=== PATIENT | male | born 1965 | race Caucasian/White ===

== ENCOUNTER 2017-10-04 06:52 | Day surgery (SDC) | payer OTHER, SELFPAY ==
[2017-10-01 13:13] VITALS: BMI 26.0
[2017-10-04] VITALS (10 sets, daily range): BP systolic 109–135; BP diastolic 39–79; PULSE 53–81; RESP 10–16; TEMP 36–37.1; O2SAT 94–96; BMI 26.0
--- NOTE | 2017-10-04 | PATH_ITS ---
[facility] Accession Number: [id number] . 01 Material submitted: . PART A: HEMORRHOID - LEFT LATERAL PART B: HEMORRHOID - RIGHT ANTERIOR NEAR MIDLINE PART C: HEMORRHOID - RIGHT LATERAL . 02 Diagnosis: A. Hemorrhoid, Left Lateral, Excision: Consistent with hemorrhoids. Negative for dysplasia or malignancy. . B. Hemorrhoid, Right Anterior Near Midline, Excision: Consistent with hemorrhoids. Negative for dysplasia or malignancy. . C. Hemorrhoid, Right Lateral, Excision: Consistent with hemorrhoids. Negative for dysplasia or malignancy. BFI/10/08/2017 . 02 Electronically signed: . Mansoor Marcial MD, PhD, Pathologist NPI- [id number] . 01 Gross description: . Received three formalin-filled containers, each labeled with the patient's name: . A. In a container labeled hemorrhoid left lateral #1, the specimen consists of a red-sosa to sosa-brown, rough, dome-shaped portion of tissue which measures 2.3 x 1.2 x 0.5 cm. The specimen is inked blue. Two apparel trimmings sales representative sections are submitted in cassette A. B. In a container labeled 2. Hemorrhoid right anterior near midline, the specimen consists of a sosa-ferreira to sosa-brown portion of tissue which measures 2.5 x 1.2 x 0.6 cm. The specimen is inked blue. Two apparel trimmings sales representative sections are submitted in cassette B. C. In a container labeled hemorrhoid right lateral, the specimen consists of a sosa-ferreira portion of tissue which measures 1.0 x 0.7 x 0.4 cm. The specimen is inked blue, trisected, and totally submitted in cassette C. ([id number]) /FRR . 02 Pathologist provided ICD-10: K64.0 . 02 CPT . 693540, 882536, [id number] Performed at: 01 [facility] [address] [place] [address], [place], [place] [id number] MD Kaz Zuniga MD Phone: [phone] Performed at: 02 [facility] [address] [place], [place] [id number] MD Reed Larson MD Phone: [phone]
[2017-10-04] MEDS: GABAPENTIN 600 MG TABLET PO (07:40)
--- NOTE | 2017-10-04 07:40 | PM.HP.1 ---
History of Present Illness Date Patient Seen: 10/04/17 Time Patient Seen: 07:41 Chief complaint: hemorrhoidectomy [id number] Narrative: Patient is a gentleman with significant hemorrhoidal disease. He actually had to be admitted and transfused for rectal bleeding and this was controlled with banding. However, his hemorrhoids are quite extensive and further banding does not seem to be reasonable option especially given the external components of his hemorrhoids. He is brought in for a formal hemorrhoidectomy. Patient History Medical History Nodule of left lung (Acute) Chronic pain (Chronic Unknown) Chronic pain of lower extremity (Chronic) Depression (Chronic Unknown) Hemorrhoids (Chronic Unknown) Hx of back injury (Chronic 03/2014) Neurogenic bladder (Chronic Unknown) PTSD (post-traumatic stress disorder) (Chronic Unknown) Anemia (Resolved Unknown) Surgical History History of colonoscopy (Inactive) Family & Social History Family History: Reviewed 10/04/17 by Eyad Dewey MD Social History: household members none Tobacco & Substance use: Smoking Status Never smoker Substance Use Type does not use Meds Home Medications Medication Instructions Recorded Confirmed Type docusate sodium [DOK] 250 mg PO BIDP PRN #0 02/07/17 10/04/17 History duloxetine [Cymbalta] 3 cap PO QDAY #0 02/07/17 History gabapentin [Neurontin] 3 tab PO Q8H #0 02/07/17 History lidocaine [Lidoderm] 1 patch TOPICAL Q12H PRN #0 02/07/17 History methocarbamol 2 tab PO Q8H #0 02/07/17 History topiramate [Topamax] 100 mg PO HS #0 02/07/17 History [VITAMIN B] PO QDAY #0 05/16/17 History hydrocodone-acetaminophen 1 tab PO Q6HP PRN #20 tab 05/19/17 Rx psyllium husk (aspartame) 1 pac PO QDAY #30 pac 05/19/17 Rx [Metamucil Fiber Singles] topiramate 100 mg PO BEDTIME 10/04/17 10/04/17 History Allergies Allergy/AdvReac Type Severity Reaction Status Date / Time No Known Drug Allergies Allergy Verified 10/01/17 13:18 Review of Systems Review of Systems All systems reviewed & are unremarkable except as noted in HPI and below Musculoskeletal Comments: Due to back fracture he has some decrease in his mobility and chronic pain in his lower extremities. Exam Vital Signs (past 8 hours): - 10/04/17 07:26 Temperature 98.7 F Pulse Rate 53 L Respiratory Rate 16 Blood Pressure 117/64 Pulse Oximetry 95 Oxygen Delivery Method Room Air Narrative Exam Narrative: Operative no apparent distress. His eyes are nonicteric. Lungs are clear to auscultation. No rales or rhonchi. Heart regular rate and rhythm without murmur gallop. Abdomen is scaphoid soft nontender without mass. Evidence of external hemorrhoids and known internal hemorrhoids. Alert and oriented x3. Speech rate and content are appropriate. Affect is appropriate. Assessment & Plan Plan: Assessment/Plan Narrative: Patient is a gentleman with large internal and external hemorrhoids who has chronic issues with his intestinal motility secondary to back injury. He has had marked improvement in his function 6 the injury but he is still recovering. I have discussed the operation with him. Risks of bleeding, infection which could be life threatening and recurrence of hemorrhoids in long-term were discussed. He may have considerable pain. This was also discussed. All questions were answered. Patient wishes to proceed. He has a known hernia but I would not repair that at this time.
[2017-10-04] MEDS: LACTATED RINGERS 1,000 ML 42 ML IV ×2 (07:41→11:40)
--- NOTE | 2017-10-04 07:47 | PM.PREOP ---
Pre-operative Note Interval Note Pre-op Check: Yes History & Physical exam performed today by Physician Changes: No
--- NOTE | 2017-10-04 08:32 | SUR.OPER ---
Prone on padded OR bed, head in foam head support, gel chest rolls, gel pad under knees, pillow under lower legs, toes free of pressure, arms secured on padded arm boards at <90 degrees abduction. Safety belt at thigh.
[2017-10-04] MEDS: LIDOCAINE 1% W/EPI INJ 20 ML INJ (08:41)
[2017-10-04] MEDS: DIBUCAINE 1% OINT 28 GM 1 APPLIC TOP (08:42)
[2017-10-04] MEDS: fentaNYL 100 MCG/2 ML INJ IV ×4 (09:50→10:18)
--- NOTE | 2017-10-04 09:50 | P.OP_ITS ---
Operative Date/Time/Diagnoses Date of procedure: 10/04/17 Time of procedure: 09:28 Pre-op diagnosis: Internal and external hemorrhoids with bleeding Post-op diagnosis: same (Columns located in the left lateral right anterior near midline and right lateral locations.) Procedure & Clinicians Procedure: Three column hemorrhoidectomy Same procedure as scheduled: Yes Indications: Bleeding hemorrhoids Surgeon: Eyad Dewey Click Yes if Unassisted: Yes Anesthesia Type: General Operative Notes Findings: Three columns of hemorrhoids as described above Closure Type: primary Specimen(s): other (Three columns of hemorrhoids) Implants & Drains: None Estimated Blood Loss (mL): 150 Blood products transfused: none Procedure in detail: The patient was placed richard-knife prone on the operating room table after discussion preoperatively that he would have no problem in that position. He was prepped and draped in usual fashion. Local anesthetic was infiltrated in the area with a visible external hemorrhoids were located. Digital exam was unremarkable. A bivalve anoscope was inserted and circumferential exam performed. There were 3 columns of hemorrhoids to be dealt with. One on each side and then 1 in the anterior right location. Beginning on the left lateral position, a suture was placed at the head of the column consisting of 2 0 chromic. the external hemorrhoid was lifted off the underlying sphincters and dissected proximally and the entire hemorrhoid excised back to near the suture. The defect created was then closed with a running 2 0 chromic suture locking it intermittently. It is sternal sutures were placed to bring all bleeding to a cessation. Attention was then turned to the other 2 hemorrhoids which were excised in identical fashion. They were closed in identical fashion. The anus was then prepped with Betadine local anesthetic was infiltrated at the hemorrhoidal excision sites. Meticulous hemostasis had been she. The Gel-Foam with Nupercainal was inserted in the anal verge. A dressing was applied and the patient was placed black on his bed , extubated and taken the recovery room good condition. Complications: none Condition: stable Disposition: PACU Plan for aftercare: Follow-up in the office on October 19.
--- NOTE | 2017-10-04 10:15 | SUR.PHASEI ---
Oral airway removed at 0940 when pt aroused. Upon arousing pt's body became stiff and shaking. Pt was able to converse but was difficult to distract from the full body shaking. He explained that this is his body's reaction to pain/stress and that he needed pain relief medication. I medicated the pt with fenanyl and his body relaxed about 5 minutes after the first dose.
[2017-10-04] MEDS: OXYCODONE/ACETAMINOPHEN 5/325 TABLET 1 TAB PO ×2 (10:25→10:34)
== END 2017-10-04 11:26 | disposition home or self-care (01) ==
PROVIDERS: Family Provider Family Medicine; PCP Family Medicine; Visit Provider Specialist
PROC: (CPT 46260; principal; 2017-10-04 07:45)
DX: K64.8 Other hemorrhoids (principal); K64.4 Residual hemorrhoidal skin tags; G89.29 Other chronic pain; M79.605 Pain in left leg; M79.604 Pain in right leg
CPT/HCPCS: 46260; J0330; J1100; J2250; J2405; J2704; J3010

== ENCOUNTER 2017-10-31 09:45 | Outpatient (RCR) | payer OTHER, SELFPAY ==
--- NOTE | 2017-07-13 07:47 | PT.OIE ---
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, sequela (07/11/17) History of falling (07/11/17) Provider Visit Care Team Role Provider Type Arthur Bowens MD Attending Provider Physician Family Provider Primary Care Provider Specialty: Family Practice Address: [address] [place] [address], [facility] Email: [email or web address] Physical Therapy Initial Evaluation PT-OP-A Visit Information Start: 07/12/17 06:42 Freq: Status: Active Protocol: Document 07/11/17 10:30 AMB (Rec: 07/12/17 07:21 AMB [email or web address]) Out-Patient Physical Therapy Visit Information Visit Information Visit Type Initial Evaluation Visit Note 12 visits authorized between and 09/09/17 Visit Start Time 10:30 Visit Stop Time 11:30 Total Visit Minutes 60 Visit Number 1 Evaluation Information Evaluation Date 07/11/17 PT-OP-B Current Condition Start: 07/12/17 06:42 Freq: Status: Active Protocol: Document 07/11/17 10:30 AMB (Rec: 07/13/17 07:05 AMB [email or web address]) Current Condition History of Current Condition Onset Date 03/23/2014 Current Complaints Difficulty walking, pain in bilateral legs s/p incomplete paraplegia History of Current Condition Pt was in a snowboarding accident in 2014. He fractured T12 and had 2 surgeries: T1-L2 PSIF and T11 -L1 anterior fusion. Prior Treatments and Tests He had physical therapy in 2014 which focused on land and aquatic based exercise. He has followed up by exercising in the pool and the gym 3x/ week. He also goes to a chiropractor and massage therapist which helps with the leg and back pain. Treatment Goals Patient/Caregiver Goals Figure out what he can do to improve his function Prior Functional Status Baseline Function- ADL's Modified Independent Baseline Function- Mobility Modified Independent Baseline Function- Gait Before his SCI the patient was an independent community ambulator Baseline Function- Work/School Patient is retired Current Functional Impairments (Reported) Functional Limitations- Mobility/Gait Pt ambulates with 1-2 SPCs for short distances, uses a manual w/c for longer distances. PT-OP-C Subjective Start: 07/12/17 06:42 Freq: Status: Active Protocol: Document 07/11/17 10:30 AMB (Rec: 07/12/17 07:18 AMB [email or web address]) OP-PT Subjective Patient Comments Patient Comments Pt states he goes to the gym and works out a the pool 3x/ week, he does daily stretches in the morning. He is hoping to focus on what he can improve to improve his function (he falls daily) and to improve his leg pain. Patient Questionnaires Lower Extremity Functional Scale LEFS Score 18 LEFS Impairment 60 to 79% Impaired (Score 17- 31) OP-PT Pain Assessment Pain Assessment Grid Paper Pain Assessment Grid Completed Yes Location Shoulder Pain Location Details Bilateral scapulae, anterior R shoulder Intensity 6 Scale Used Numeric (1 - 10) Knee Pain Location Details Bilateral Intensity 9 Scale Used Numeric (1 - 10) Variations/Patterns Anterior leg pain of 6/10 worst at anterior knees. PT-OP-E Functional Tests Start: 07/12/17 06:42 Freq: Status: Active Protocol: Document 07/11/17 10:30 AMB (Rec: 07/12/17 07:03 AMB [email or web address]) Functional Tests Timed Up and Go (TUG) Score 18 seconds Comments with 1 SPC, 39 seconds without AD PT-OP-G Mobility & Gait Start: 07/12/17 06:42 Freq: Status: Active Protocol: Document 07/11/17 10:30 AMB (Rec: 07/12/17 07:13 AMB [email or web address]) OP Mobility Evaluation Wheelchair Management Assessment Details Pt did not bring it in but it sounds like a rigid ultra light. He does get right shoulder pain both anteriorly and in the scapula with propulsion, especially with end range shoulder extension. OP Gait Assessment Gait Gait Assistance Required: Standby Assistance Distance (Feet) (feet) 40 Assistive Devices Assistive Device Straight Cane Factors Limiting Gait Function Factors Limiting Gait Function Abnormal Tonal Influences Decreased Sensation Decreased Strength Pain Poor Balance Comments Gait Comments Pt with very stiff gait, reduced trunk rotation, placing his feet takes concentration. Pt has 2 near falls during PT. States that he leg just give out. PT-OP-H Neuro Start: 07/12/17 06:42 Freq: Status: Active Protocol: Document 07/11/17 10:30 AMB (Rec: 07/12/17 07:02 AMB [email or web address]) Sensation Evaluation Location Details Lower Extremity Light Touch Impaired Proprioception (Position) Impaired Comments Summary Comments Pt reports recent sensation testing at [place]: had difficult with sharp vs dull due to increased pain in bilateral legs, worst at anterior knees. Pt hyper sensitive to light touch to the point he tries not to wear long pants (but he can wear socks and shoes). Muscle Tone Tone Assessment Lower Extremity Muscle Tone Comments Non- diminishing clonus bilaterally PT-OP-J Posture/Palpation/Skin Start: 07/12/17 06:42 Freq: Status: Active Protocol: Document 07/11/17 10:30 AMB (Rec: 07/12/17 07:06 AMB [email or web address]) Palpation Assessment Location Two Palpation Location R shoulder Palpation Findings Soft Tissue Tightness Tenderness Palpation Details Tenderness with palpation at biceps tendon on the right, not on the left. One Palpation Location Scar at thoracic and lumbar spine Palpation Findings Muscle Guarding Palpation Details Patient is concerned about a knot at his proximal scar on the right. It is quite firm and increases his pain with palpation. PT-OP-M Strength Start: 07/12/17 06:42 Freq: Status: Active Protocol: Document 07/11/17 10:30 AMB (Rec: 07/12/17 06:56 AMB [email or web address]) Trunk Strength Trunk Manual Muscle Testing Testing Position Supine Core Stabilization Can control double leg lowering without back arching until 30 degrees from neutral. Hip Strength Hip Manual Muscle Testing Right Flexion (L2) 4 Good Extension (S1) 4 Good Abduction 4- Good- Left Flexion (L2) 4+ Good+ Extension (S1) 4+ Good+ Abduction 4 Good Knee Strength Knee Manual Muscle Testing Left Flexion (S2) 4+ Good+ Extension (L3) 5 Normal Right Flexion (S2) 4+ Good+ Extension (L3) 5 Normal Ankle/Foot Strength Ankle and Foot Manual Muscle Testing Left Dorsiflexion (L4) 4 Good Plantarflexion (S1) 4- Good- Inversion 4 Good Eversion (S1) 3 Fair Right Dorsiflexion (L4) 4 Good Plantarflexion (S1) 4- Good- Inversion 4 Good Eversion (S1) 3 Fair Toe Strength Toe Manual Muscle Testing Right Great Toe Extension 4+ Good+ Left Great Toe Extension 4+ Good+ PT-OP-T Assessment and Plan Start: 07/12/17 06:42 Freq: Status: Active Protocol: Document 07/11/17 10:30 AMB (Rec: 07/13/17 07:42 AMB [email or web address]) Physical Therapy Assessment Rehab Potential Rehabilitation Potential Good Evaluation Complexity Number of Personal Factors/Comorbidities 1-2 Number of Body Systems Impaired 4 or More Clinical Presentation at Evaluation Evolving Impairments Impairments Activity Tolerance Balance Coordination Functional Activities Functional Mobility Gait Pain ROM Sensation Soft Tissue Mobility Strength Tone Other Concerns Fall Risk Pt reports 1x/day on average Goals 3 Impairment Balance Short Term Goal (STG) The patient will stand without UE support without LOB for 1 minute. STG Duration 4 weeks Correction Goal (LTG) The patient will reduce his falls from approximately 1x/ day to 1x/week. LTG Duration 8 weeks 2 Impairment Pain Short Term Goal (STG) The patient will roll over in bed without pain. STG Duration 4 weeks Correction Goal (LTG) The patient will tolerate wearing long pants with 5/10 pain or less. LTG Duration 8 weeks 1 Impairment Gait Short Term Goal (STG) The patient will improve his TUG score to 12 seconds with 1 SPC. STG Duration 4 weeks Correction Goal (LTG) The patient will ambulate in the community over uneven surfaces for 20 minutes without LOB or an increase in pain. LTG Duration 8 weeks Assessment Summary Assessment The patient attends PT with multiple pain complaints. The focus of physical therapy will be to help him manage his pain, and improve his function with transfers and gait. While his MMT in some muscle groups was strong, he has difficulty moving his legs throughout their ROM due to reduced proprioception and increased tone. Managing these impairments will be helpful in his overall pain management. Physical Therapy Plan Frequency and Duration Frequency of Treatment 2x/Week Duration of Treatment 2 months Plan of Care Start Date 07/11/17 Plan of Care End Date 09/05/17 Therapeutic Interventions Therapeutic Interventions Aquatic Therapy Balance Training Gait Training Home Exercise Program Manual Therapy Neuromuscular Re-education Self-Care/Home Management Therapeutic Activities Therapeutic Exercises Modalities Cold Pack/Ice Massage Electric Stimulation Hot Packs Provider Signature Date
--- NOTE | 2017-07-18 10:32 | PT.OTN ---
Current Diagnoses Pain in leg, unspecified (08/15/17) Physical Therapy Treatment Note PT-OP-A Visit Information Start: 07/12/17 06:42 Freq: Status: Active Protocol: Document 07/18/17 10:30 AMB (Rec: 07/18/17 10:44 AMB [id number]) Out-Patient Physical Therapy Visit Information Visit Information Visit Type Treatment Note Visit Note 12 visits authorized between and 09/09/17 Visit Start Time 10:30 Visit Stop Time 11:15 Total Visit Minutes 45 Visit Number 2 Evaluation Information Evaluation Date 07/11/17 PT-OP-B Current Condition Start: 07/12/17 06:42 Freq: Status: Active Protocol: Document 07/11/17 10:30 AMB (Rec: 07/13/17 07:05 AMB [email or web address]) Current Condition History of Current Condition Onset Date 03/23/2014 Current Complaints Difficulty walking, pain in bilateral legs s/p incomplete paraplegia History of Current Condition Pt was in a snowboarding accident in 2014. He fractured T12 and had 2 surgeries: T1-L2 PSIF and T11 -L1 anterior fusion. Prior Treatments and Tests He had physical therapy in 2014 which focused on land and aquatic based exercise. He has followed up by exercising in the pool and the gym 3x/ week. He also goes to a chiropractor and massage therapist which helps with the leg and back pain. Treatment Goals Patient/Caregiver Goals Figure out what he can do to improve his function Prior Functional Status Baseline Function- ADL's Modified Independent Baseline Function- Mobility Modified Independent Baseline Function- Gait Before his SCI the patient was an independent community ambulator Baseline Function- Work/School Patient is retired Current Functional Impairments (Reported) Functional Limitations- Mobility/Gait Pt ambulates with 1-2 SPCs for short distances, uses a manual w/c for longer distances. PT-OP-C Subjective Start: 07/12/17 06:42 Freq: Status: Active Protocol: Document 07/18/17 10:30 AMB (Rec: 07/18/17 11:05 AMB [email or web address]) OP-PT Subjective Patient Comments Patient Comments Pt has been working on [address]. PT-OP-E Functional Tests Start: 07/12/17 06:42 Freq: Status: Active Protocol: Document 07/11/17 10:30 AMB (Rec: 07/12/17 07:03 AMB [email or web address]) Functional Tests Timed Up and Go (TUG) Score 18 seconds Comments with 1 SPC, 39 seconds without AD PT-OP-G Mobility & Gait Start: 07/12/17 06:42 Freq: Status: Active Protocol: Document 07/11/17 10:30 AMB (Rec: 07/12/17 07:13 AMB [email or web address]) OP Mobility Evaluation Wheelchair Management Assessment Details Pt did not bring it in but it sounds like a rigid ultra light. He does get right shoulder pain both anteriorly and in the scapula with propulsion, especially with end range shoulder extension. OP Gait Assessment Gait Gait Assistance Required: Standby Assistance Distance (Feet) (feet) 40 Assistive Devices Assistive Device Straight Cane Factors Limiting Gait Function Factors Limiting Gait Function Abnormal Tonal Influences Decreased Sensation Decreased Strength Pain Poor Balance Comments Gait Comments Pt with very stiff gait, reduced trunk rotation, placing his feet takes concentration. Pt has 2 near falls during PT. States that he leg just give out. PT-OP-H Neuro Start: 07/12/17 06:42 Freq: Status: Active Protocol: Document 07/11/17 10:30 AMB (Rec: 07/12/17 07:02 AMB [email or web address]) Sensation Evaluation Location Details Lower Extremity Light Touch Impaired Proprioception (Position) Impaired Comments Summary Comments Pt reports recent sensation testing at [place]: had difficult with sharp vs dull due to increased pain in bilateral legs, worst at anterior knees. Pt hyper sensitive to light touch to the point he tries not to wear long pants (but he can wear socks and shoes). Muscle Tone Tone Assessment Lower Extremity Muscle Tone Comments Non- diminishing clonus bilaterally PT-OP-J Posture/Palpation/Skin Start: 07/12/17 06:42 Freq: Status: Active Protocol: Document 07/11/17 10:30 AMB (Rec: 07/12/17 07:06 AMB [email or web address]) Palpation Assessment Location Two Palpation Location R shoulder Palpation Findings Soft Tissue Tightness Tenderness Palpation Details Tenderness with palpation at biceps tendon on the right, not on the left. One Palpation Location Scar at thoracic and lumbar spine Palpation Findings Muscle Guarding Palpation Details Patient is concerned about a knot at his proximal scar on the right. It is quite firm and increases his pain with palpation. PT-OP-M Strength Start: 07/12/17 06:42 Freq: Status: Active Protocol: Document 07/11/17 10:30 AMB (Rec: 07/12/17 06:56 AMB [email or web address]) Trunk Strength Trunk Manual Muscle Testing Testing Position Supine Core Stabilization Can control double leg lowering without back arching until 30 degrees from neutral. Hip Strength Hip Manual Muscle Testing Right Flexion (L2) 4 Good Extension (S1) 4 Good Abduction 4- Good- Left Flexion (L2) 4+ Good+ Extension (S1) 4+ Good+ Abduction 4 Good Knee Strength Knee Manual Muscle Testing Left Flexion (S2) 4+ Good+ Extension (L3) 5 Normal Right Flexion (S2) 4+ Good+ Extension (L3) 5 Normal Ankle/Foot Strength Ankle and Foot Manual Muscle Testing Left Dorsiflexion (L4) 4 Good Plantarflexion (S1) 4- Good- Inversion 4 Good Eversion (S1) 3 Fair Right Dorsiflexion (L4) 4 Good Plantarflexion (S1) 4- Good- Inversion 4 Good Eversion (S1) 3 Fair Toe Strength Toe Manual Muscle Testing Right Great Toe Extension 4+ Good+ Left Great Toe Extension 4+ Good+ PT-OP-Q Treatments Start: 07/12/17 06:42 Freq: Status: Active Protocol: Document 07/18/17 10:30 AMB (Rec: 07/18/17 13:44 AMB [email or web address]) Therapeutic Exercises Supine Exercises 3 Supine Exercise Name SLR Side right Reps/Minutes 2x5 2 Supine Exercise Name 90-90 knee extension Resistance AROM Reps/Minutes 2 x 5 1 Supine Exercise Name hooklying knee extension Side bilateral Resistance AROM Reps/Minutes 2 x 10 Comments better with reduced pain Sidelying Exercises 1 Sidelying Exercise Name hip abduction Side bilateral Reps/Minutes 2 x 5 Comments difficult due to impaired proprioception Sitting Exercises 2 Sitting Exercise Name theraband ankle eversion Side bilateral Resistance 2 Reps/Minutes 2 x 10 1 Sitting Exercise Name theraband hip ER Side bilateral Resistance 2 Reps/Minutes 2x 10 Standing Exercises 1 Standing Exercise Name heel raise Reps/Minutes x 10 ea Comments single and double PT-OP-T Assessment and Plan Start: 07/12/17 06:42 Freq: Status: Active Protocol: Document 07/18/17 10:30 AMB (Rec: 07/18/17 13:44 AMB [email or web address]) Physical Therapy Assessment Assessment Summary Assessment The patient's pain impacts his ability to smoothly move through his ROM. He has much more tolerance to greater repetitions when his pain levels are lower. Breathing through the pain and reminders regarding the role of the brain in pain are helpful. Pt requires extensive rest breaks, and 1 repetition takes a long time due to the pain. Physical Therapy Plan Next Visit Focus/Plan Next Visit Plan Follow up on pain tolerance Please Sign and Return: I have reviewed this Plan of Care and certify that the skilled therapy services above are required to meet the patient?s needs. Physician Signature Date Printed Name and Credentials Clinical Instructor Signature Printed Name and Credentials
--- NOTE | 2017-08-15 15:30 | PT.OTN ---
Current Diagnoses Pain in leg, unspecified (08/15/17) Physical Therapy Treatment Note PT-OP-A Visit Information Start: 07/12/17 06:42 Freq: Status: Active Protocol: Document 08/15/17 10:30 AMB (Rec: 08/15/17 11:16 AMB [id number]) Out-Patient Physical Therapy Visit Information Visit Information Visit Type Treatment Note Visit Note 12 visits authorized between and 09/09/17 Visit Start Time 10:30 Visit Stop Time 11:15 Total Visit Minutes 45 Visit Number 3 Evaluation Information Evaluation Date 07/11/17 PT-OP-B Current Condition Start: 07/12/17 06:42 Freq: Status: Active Protocol: Document 07/11/17 10:30 AMB (Rec: 07/13/17 07:05 AMB [email or web address]) Current Condition History of Current Condition Onset Date 03/23/2014 Current Complaints Difficulty walking, pain in bilateral legs s/p incomplete paraplegia History of Current Condition Pt was in a snowboarding accident in 2014. He fractured T12 and had 2 surgeries: T1-L2 PSIF and T11 -L1 anterior fusion. Prior Treatments and Tests He had physical therapy in 2014 which focused on land and aquatic based exercise. He has followed up by exercising in the pool and the gym 3x/ week. He also goes to a chiropractor and massage therapist which helps with the leg and back pain. Treatment Goals Patient/Caregiver Goals Figure out what he can do to improve his function Prior Functional Status Baseline Function- ADL's Modified Independent Baseline Function- Mobility Modified Independent Baseline Function- Gait Before his SCI the patient was an independent community ambulator Baseline Function- Work/School Patient is retired Current Functional Impairments (Reported) Functional Limitations- Mobility/Gait Pt ambulates with 1-2 SPCs for short distances, uses a manual w/c for longer distances. PT-OP-C Subjective Start: 07/12/17 06:42 Freq: Status: Active Protocol: Document 08/15/17 10:30 AMB (Rec: 08/15/17 11:16 AMB [id number]) OP-PT Subjective Patient Comments Patient Comments Pt has been working on hip abduction and his ankle exercises. PT-OP-E Functional Tests Start: 07/12/17 06:42 Freq: Status: Active Protocol: Document 07/11/17 10:30 AMB (Rec: 07/12/17 07:03 AMB [email or web address]) Functional Tests Timed Up and Go (TUG) Score 18 seconds Comments with 1 SPC, 39 seconds without AD PT-OP-G Mobility & Gait Start: 07/12/17 06:42 Freq: Status: Active Protocol: Document 07/11/17 10:30 AMB (Rec: 07/12/17 07:13 AMB [email or web address]) OP Mobility Evaluation Wheelchair Management Assessment Details Pt did not bring it in but it sounds like a rigid ultra light. He does get right shoulder pain both anteriorly and in the scapula with propulsion, especially with end range shoulder extension. OP Gait Assessment Gait Gait Assistance Required: Standby Assistance Distance (Feet) (feet) 40 Assistive Devices Assistive Device Straight Cane Factors Limiting Gait Function Factors Limiting Gait Function Abnormal Tonal Influences Decreased Sensation Decreased Strength Pain Poor Balance Comments Gait Comments Pt with very stiff gait, reduced trunk rotation, placing his feet takes concentration. Pt has 2 near falls during PT. States that he leg just give out. PT-OP-H Neuro Start: 07/12/17 06:42 Freq: Status: Active Protocol: Document 07/11/17 10:30 AMB (Rec: 07/12/17 07:02 AMB [email or web address]) Sensation Evaluation Location Details Lower Extremity Light Touch Impaired Proprioception (Position) Impaired Comments Summary Comments Pt reports recent sensation testing at [place]: had difficult with sharp vs dull due to increased pain in bilateral legs, worst at anterior knees. Pt hyper sensitive to light touch to the point he tries not to wear long pants (but he can wear socks and shoes). Muscle Tone Tone Assessment Lower Extremity Muscle Tone Comments Non- diminishing clonus bilaterally PT-OP-J Posture/Palpation/Skin Start: 07/12/17 06:42 Freq: Status: Active Protocol: Document 07/11/17 10:30 AMB (Rec: 07/12/17 07:06 AMB [email or web address]) Palpation Assessment Location Two Palpation Location R shoulder Palpation Findings Soft Tissue Tightness Tenderness Palpation Details Tenderness with palpation at biceps tendon on the right, not on the left. One Palpation Location Scar at thoracic and lumbar spine Palpation Findings Muscle Guarding Palpation Details Patient is concerned about a knot at his proximal scar on the right. It is quite firm and increases his pain with palpation. PT-OP-M Strength Start: 07/12/17 06:42 Freq: Status: Active Protocol: Document 07/11/17 10:30 AMB (Rec: 07/12/17 06:56 AMB [email or web address]) Trunk Strength Trunk Manual Muscle Testing Testing Position Supine Core Stabilization Can control double leg lowering without back arching until 30 degrees from neutral. Hip Strength Hip Manual Muscle Testing Right Flexion (L2) 4 Good Extension (S1) 4 Good Abduction 4- Good- Left Flexion (L2) 4+ Good+ Extension (S1) 4+ Good+ Abduction 4 Good Knee Strength Knee Manual Muscle Testing Left Flexion (S2) 4+ Good+ Extension (L3) 5 Normal Right Flexion (S2) 4+ Good+ Extension (L3) 5 Normal Ankle/Foot Strength Ankle and Foot Manual Muscle Testing Left Dorsiflexion (L4) 4 Good Plantarflexion (S1) 4- Good- Inversion 4 Good Eversion (S1) 3 Fair Right Dorsiflexion (L4) 4 Good Plantarflexion (S1) 4- Good- Inversion 4 Good Eversion (S1) 3 Fair Toe Strength Toe Manual Muscle Testing Right Great Toe Extension 4+ Good+ Left Great Toe Extension 4+ Good+ PT-OP-Q Treatments Start: 07/12/17 06:42 Freq: Status: Active Protocol: Document 08/15/17 10:30 AMB (Rec: 08/15/17 15:26 AMB [email or web address]) Gym Equipment Shuttle Recovery Unilateral Heel Raises Resistance 50# Reps/Time 2 min Bilateral Heel Raises Resistance 75# Reps/Time 3 min Therapeutic Exercises Sidelying Exercises 3 Sidelying Exercise Name side plank Reps/Minutes 10x4 Comments kneeling and forearm 2 Sidelying Exercise Name clamshell Comments 2 x 10 1 Sidelying Exercise Name hip abduction Side bilateral Reps/Minutes 2 x 10 Comments improved Standing Exercises 1 Standing Exercise Name heel raise Equipment Used on stair Reps/Minutes x 10 ea Comments single and double PT-OP-T Assessment and Plan Start: 07/12/17 06:42 Freq: Status: Active Protocol: Document 08/15/17 10:30 AMB (Rec: 08/15/17 15:30 AMB [email or web address]) Physical Therapy Assessment Assessment Summary Assessment Pt is noticing increased pain bilaterally at his posterior thighs. Continues to have more strength statically than when trying to move his legs through space without being able to see them. Physical Therapy Plan Next Visit Focus/Plan Next Note Type Treatment Note Next Visit Plan Progress Please Sign and Return: I have reviewed this Plan of Care and certify that the skilled therapy services above are required to meet the patient?s needs. Physician Signature Date Printed Name and Credentials Clinical Instructor Signature Printed Name and Credentials
--- NOTE | 2017-08-22 11:47 | PT.OTN ---
Current Diagnoses Pain in leg, unspecified (08/22/17) Physical Therapy Treatment Note PT-OP-A Visit Information Start: 07/12/17 06:42 Freq: Status: Active Protocol: Document 08/22/17 10:30 AMB (Rec: 08/22/17 11:46 AMB [email or web address]) Out-Patient Physical Therapy Visit Information Visit Information Visit Type Treatment Note Visit Note 12 visits authorized between and 09/09/17 Visit Start Time 10:30 Visit Stop Time 11:15 Total Visit Minutes 45 Visit Number 4 Evaluation Information Evaluation Date 07/11/17 PT-OP-B Current Condition Start: 07/12/17 06:42 Freq: Status: Active Protocol: Document 07/11/17 10:30 AMB (Rec: 07/13/17 07:05 AMB [email or web address]) Current Condition History of Current Condition Onset Date 03/23/2014 Current Complaints Difficulty walking, pain in bilateral legs s/p incomplete paraplegia History of Current Condition Pt was in a snowboarding accident in 2014. He fractured T12 and had 2 surgeries: T1-L2 PSIF and T11 -L1 anterior fusion. Prior Treatments and Tests He had physical therapy in 2014 which focused on land and aquatic based exercise. He has followed up by exercising in the pool and the gym 3x/ week. He also goes to a chiropractor and massage therapist which helps with the leg and back pain. Treatment Goals Patient/Caregiver Goals Figure out what he can do to improve his function Prior Functional Status Baseline Function- ADL's Modified Independent Baseline Function- Mobility Modified Independent Baseline Function- Gait Before his SCI the patient was an independent community ambulator Baseline Function- Work/School Patient is retired Current Functional Impairments (Reported) Functional Limitations- Mobility/Gait Pt ambulates with 1-2 SPCs for short distances, uses a manual w/c for longer distances. PT-OP-C Subjective Start: 07/12/17 06:42 Freq: Status: Active Protocol: Document 08/22/17 10:30 AMB (Rec: 08/22/17 11:46 AMB [email or web address]) OP-PT Subjective Patient Comments Patient Comments Pt saw pain specialists at [facility] on Sunday, and they said he may just have to get used to the pain per his report. PT-OP-E Functional Tests Start: 07/12/17 06:42 Freq: Status: Active Protocol: Document 07/11/17 10:30 AMB (Rec: 07/12/17 07:03 AMB [email or web address]) Functional Tests Timed Up and Go (TUG) Score 18 seconds Comments with 1 SPC, 39 seconds without AD PT-OP-G Mobility & Gait Start: 07/12/17 06:42 Freq: Status: Active Protocol: Document 07/11/17 10:30 AMB (Rec: 07/12/17 07:13 AMB [email or web address]) OP Mobility Evaluation Wheelchair Management Assessment Details Pt did not bring it in but it sounds like a rigid ultra light. He does get right shoulder pain both anteriorly and in the scapula with propulsion, especially with end range shoulder extension. OP Gait Assessment Gait Gait Assistance Required: Standby Assistance Distance (Feet) (feet) 40 Assistive Devices Assistive Device Straight Cane Factors Limiting Gait Function Factors Limiting Gait Function Abnormal Tonal Influences Decreased Sensation Decreased Strength Pain Poor Balance Comments Gait Comments Pt with very stiff gait, reduced trunk rotation, placing his feet takes concentration. Pt has 2 near falls during PT. States that he leg just give out. PT-OP-H Neuro Start: 07/12/17 06:42 Freq: Status: Active Protocol: Document 07/11/17 10:30 AMB (Rec: 07/12/17 07:02 AMB [email or web address]) Sensation Evaluation Location Details Lower Extremity Light Touch Impaired Proprioception (Position) Impaired Comments Summary Comments Pt reports recent sensation testing at [place]: had difficult with sharp vs dull due to increased pain in bilateral legs, worst at anterior knees. Pt hyper sensitive to light touch to the point he tries not to wear long pants (but he can wear socks and shoes). Muscle Tone Tone Assessment Lower Extremity Muscle Tone Comments Non- diminishing clonus bilaterally PT-OP-J Posture/Palpation/Skin Start: 07/12/17 06:42 Freq: Status: Active Protocol: Document 07/11/17 10:30 AMB (Rec: 07/12/17 07:06 AMB [email or web address]) Palpation Assessment Location Two Palpation Location R shoulder Palpation Findings Soft Tissue Tightness Tenderness Palpation Details Tenderness with palpation at biceps tendon on the right, not on the left. One Palpation Location Scar at thoracic and lumbar spine Palpation Findings Muscle Guarding Palpation Details Patient is concerned about a knot at his proximal scar on the right. It is quite firm and increases his pain with palpation. PT-OP-M Strength Start: 07/12/17 06:42 Freq: Status: Active Protocol: Document 07/11/17 10:30 AMB (Rec: 07/12/17 06:56 AMB [email or web address]) Trunk Strength Trunk Manual Muscle Testing Testing Position Supine Core Stabilization Can control double leg lowering without back arching until 30 degrees from neutral. Hip Strength Hip Manual Muscle Testing Right Flexion (L2) 4 Good Extension (S1) 4 Good Abduction 4- Good- Left Flexion (L2) 4+ Good+ Extension (S1) 4+ Good+ Abduction 4 Good Knee Strength Knee Manual Muscle Testing Left Flexion (S2) 4+ Good+ Extension (L3) 5 Normal Right Flexion (S2) 4+ Good+ Extension (L3) 5 Normal Ankle/Foot Strength Ankle and Foot Manual Muscle Testing Left Dorsiflexion (L4) 4 Good Plantarflexion (S1) 4- Good- Inversion 4 Good Eversion (S1) 3 Fair Right Dorsiflexion (L4) 4 Good Plantarflexion (S1) 4- Good- Inversion 4 Good Eversion (S1) 3 Fair Toe Strength Toe Manual Muscle Testing Right Great Toe Extension 4+ Good+ Left Great Toe Extension 4+ Good+ PT-OP-Q Treatments Start: 07/12/17 06:42 Freq: Status: Active Protocol: Document 08/22/17 10:30 AMB (Rec: 08/22/17 11:46 AMB [email or web address]) Gym Equipment Therapeutic Ball 1 Exercise Details LAQ, march, pelvic tilt Ball Size/Color 65cm Body Position Sitting Comments Difficult to maintain posture, TrA engaged Therapeutic Exercises Supine Exercises 2 Supine Exercise Name 90-90 knee extension Resistance AROM Reps/Minutes 2 x 5 Prone Exercises 3 Prone Exercise Name quadruped LE/ UE ext Reps/Minutes 5 2 Prone Exercise Name cat cow Reps/Minutes 10 1 Prone Exercise Name higinio pose Comments with SB PT-OP-T Assessment and Plan Start: 07/12/17 06:42 Freq: Status: Active Protocol: Document 08/22/17 10:30 AMB (Rec: 08/22/17 11:46 AMB [email or web address]) Physical Therapy Assessment Goals 3 Impairment Balance Short Term Goal (STG) The patient will stand without UE support without LOB for 1 minute. STG Duration 4 weeks Photographic Reproduction Technician Goal (LTG) The patient will reduce his falls from approximately 1x/ day to 1x/week. LTG Duration 8 weeks 2 Impairment Pain Short Term Goal (STG) The patient will roll over in bed without pain. STG Duration 4 weeks Photographic Reproduction Technician Goal (LTG) The patient will tolerate wearing long pants with 5/10 pain or less. LTG Duration 8 weeks 1 Impairment Gait Short Term Goal (STG) The patient will improve his TUG score to 12 seconds with 1 SPC. STG Duration 4 weeks Group Home Goal (LTG) The patient will ambulate in the community over uneven surfaces for 20 minutes without LOB or an increase in pain. LTG Duration 8 weeks Assessment Summary Assessment The patient continues to have spasms that are painful, especially in supine, tolerated ball exercises better. Physical Therapy Plan Frequency and Duration Frequency of Treatment 2x/Week Duration of Treatment 2 months Plan of Care Start Date 07/11/17 Plan of Care End Date 09/05/17 Next Visit Focus/Plan Next Note Type Treatment Note Next Visit Plan Progress core stability
--- NOTE | 2017-09-12 16:15 | PT.OTN ---
Current Diagnoses Pain in leg, unspecified (09/12/17) Physical Therapy Treatment Note PT-OP-A Visit Information Start: 07/12/17 06:42 Freq: Status: Active Protocol: Document 09/12/17 11:57 AMB (Rec: 09/12/17 11:59 AMB [email or web address]) Out-Patient Physical Therapy Visit Information Visit Information Visit Type Treatment Note Visit Note 12 visits authorized between and 11/10/17 Visit Start Time 11:15 Visit Stop Time 12:00 Total Visit Minutes 45 Visit Number 5 Evaluation Information Evaluation Date 07/11/17 PT-OP-B Current Condition Start: 07/12/17 06:42 Freq: Status: Active Protocol: Document 07/11/17 10:30 AMB (Rec: 07/13/17 07:05 AMB [email or web address]) Current Condition History of Current Condition Onset Date 03/23/2014 Current Complaints Difficulty walking, pain in bilateral legs s/p incomplete paraplegia History of Current Condition Pt was in a snowboarding accident in 2014. He fractured T12 and had 2 surgeries: T1-L2 PSIF and T11 -L1 anterior fusion. Prior Treatments and Tests He had physical therapy in 2014 which focused on land and aquatic based exercise. He has followed up by exercising in the pool and the gym 3x/ week. He also goes to a chiropractor and massage therapist which helps with the leg and back pain. Treatment Goals Patient/Caregiver Goals Figure out what he can do to improve his function Prior Functional Status Baseline Function- ADL's Modified Independent Baseline Function- Mobility Modified Independent Baseline Function- Gait Before his SCI the patient was an independent community ambulator Baseline Function- Work/School Patient is retired Current Functional Impairments (Reported) Functional Limitations- Mobility/Gait Pt ambulates with 1-2 SPCs for short distances, uses a manual w/c for longer distances. PT-OP-C Subjective Start: 07/12/17 06:42 Freq: Status: Active Protocol: Document 09/12/17 11:57 AMB (Rec: 09/12/17 11:59 AMB [email or web address]) OP-PT Subjective Patient Comments Patient Comments Pt has been having increased pain on Wednesdays due to going down to [place] and kayaking, driving is painful. PT-OP-E Functional Tests Start: 07/12/17 06:42 Freq: Status: Active Protocol: Document 07/11/17 10:30 AMB (Rec: 07/12/17 07:03 AMB [email or web address]) Functional Tests Timed Up and Go (TUG) Score 18 seconds Comments with 1 SPC, 39 seconds without AD PT-OP-G Mobility & Gait Start: 07/12/17 06:42 Freq: Status: Active Protocol: Document 07/11/17 10:30 AMB (Rec: 07/12/17 07:13 AMB [email or web address]) OP Mobility Evaluation Wheelchair Management Assessment Details Pt did not bring it in but it sounds like a rigid ultra light. He does get right shoulder pain both anteriorly and in the scapula with propulsion, especially with end range shoulder extension. OP Gait Assessment Gait Gait Assistance Required: Standby Assistance Distance (Feet) (feet) 40 Assistive Devices Assistive Device Straight Cane Factors Limiting Gait Function Factors Limiting Gait Function Abnormal Tonal Influences Decreased Sensation Decreased Strength Pain Poor Balance Comments Gait Comments Pt with very stiff gait, reduced trunk rotation, placing his feet takes concentration. Pt has 2 near falls during PT. States that he leg just give out. PT-OP-H Neuro Start: 07/12/17 06:42 Freq: Status: Active Protocol: Document 07/11/17 10:30 AMB (Rec: 07/12/17 07:02 AMB [email or web address]) Sensation Evaluation Location Details Lower Extremity Light Touch Impaired Proprioception (Position) Impaired Comments Summary Comments Pt reports recent sensation testing at [place]: had difficult with sharp vs dull due to increased pain in bilateral legs, worst at anterior knees. Pt hyper sensitive to light touch to the point he tries not to wear long pants (but he can wear socks and shoes). Muscle Tone Tone Assessment Lower Extremity Muscle Tone Comments Non- diminishing clonus bilaterally PT-OP-J Posture/Palpation/Skin Start: 07/12/17 06:42 Freq: Status: Active Protocol: Document 07/11/17 10:30 AMB (Rec: 07/12/17 07:06 AMB [email or web address]) Palpation Assessment Location Two Palpation Location R shoulder Palpation Findings Soft Tissue Tightness Tenderness Palpation Details Tenderness with palpation at biceps tendon on the right, not on the left. One Palpation Location Scar at thoracic and lumbar spine Palpation Findings Muscle Guarding Palpation Details Patient is concerned about a knot at his proximal scar on the right. It is quite firm and increases his pain with palpation. PT-OP-M Strength Start: 07/12/17 06:42 Freq: Status: Active Protocol: Document 07/11/17 10:30 AMB (Rec: 07/12/17 06:56 AMB [email or web address]) Trunk Strength Trunk Manual Muscle Testing Testing Position Supine Core Stabilization Can control double leg lowering without back arching until 30 degrees from neutral. Hip Strength Hip Manual Muscle Testing Right Flexion (L2) 4 Good Extension (S1) 4 Good Abduction 4- Good- Left Flexion (L2) 4+ Good+ Extension (S1) 4+ Good+ Abduction 4 Good Knee Strength Knee Manual Muscle Testing Left Flexion (S2) 4+ Good+ Extension (L3) 5 Normal Right Flexion (S2) 4+ Good+ Extension (L3) 5 Normal Ankle/Foot Strength Ankle and Foot Manual Muscle Testing Left Dorsiflexion (L4) 4 Good Plantarflexion (S1) 4- Good- Inversion 4 Good Eversion (S1) 3 Fair Right Dorsiflexion (L4) 4 Good Plantarflexion (S1) 4- Good- Inversion 4 Good Eversion (S1) 3 Fair Toe Strength Toe Manual Muscle Testing Right Great Toe Extension 4+ Good+ Left Great Toe Extension 4+ Good+ PT-OP-Q Treatments Start: 07/12/17 06:42 Freq: Status: Active Protocol: Document 09/12/17 11:15 AMB (Rec: 09/12/17 16:15 AMB [email or web address]) Manual Therapy Treatment Soft Tissue Mobilization 1 Comments Instruction in self pressure point with ball and sock around goat driver's seat Taping 1 Body Location Bilateral knees and calves Treatment Focus reduce muscle spasm Type of Tape Kinesio Tape Skin Inspection spider bite on calf- avoided taping over this area PT-OP-T Assessment and Plan Start: 07/12/17 06:42 Freq: Status: Active Protocol: Document 09/12/17 11:15 AMB (Rec: 09/12/17 16:15 AMB [email or web address]) Physical Therapy Assessment Assessment Summary Assessment Pt's pain continues to limit his function, especially with extended activity, pressure on his knees. Physical Therapy Plan Next Visit Focus/Plan Next Note Type Treatment Note Next Visit Plan Progress LE stability, self pain management techniques.
--- NOTE | 2017-09-19 11:52 | PT.OTN ---
Current Diagnoses Pain in leg, unspecified (09/19/17) Physical Therapy Treatment Note PT-OP-A Visit Information Start: 07/12/17 06:42 Freq: Status: Active Protocol: Document 09/19/17 10:30 AMB (Rec: 09/19/17 10:30 AMB [id number]) Out-Patient Physical Therapy Visit Information Visit Information Visit Type Progress Note Visit Start Time 10:30 Visit Stop Time 11:15 Total Visit Minutes 45 Visit Number 6 Evaluation Information Evaluation Date 07/11/17 PT-OP-B Current Condition Start: 07/12/17 06:42 Freq: Status: Active Protocol: Document 07/11/17 10:30 AMB (Rec: 07/13/17 07:05 AMB [email or web address]) Current Condition History of Current Condition Onset Date 03/23/2014 Current Complaints Difficulty walking, pain in bilateral legs s/p incomplete paraplegia History of Current Condition Pt was in a snowboarding accident in 2014. He fractured T12 and had 2 surgeries: T1-L2 PSIF and T11 -L1 anterior fusion. Prior Treatments and Tests He had physical therapy in 2014 which focused on land and aquatic based exercise. He has followed up by exercising in the pool and the gym 3x/ week. He also goes to a chiropractor and massage therapist which helps with the leg and back pain. Treatment Goals Patient/Caregiver Goals Figure out what he can do to improve his function Prior Functional Status Baseline Function- ADL's Modified Independent Baseline Function- Mobility Modified Independent Baseline Function- Gait Before his SCI the patient was an independent community ambulator Baseline Function- Work/School Patient is retired Current Functional Impairments (Reported) Functional Limitations- Mobility/Gait Pt ambulates with 1-2 SPCs for short distances, uses a manual w/c for longer distances. PT-OP-C Subjective Start: 07/12/17 06:42 Freq: Status: Active Protocol: Document 09/12/17 11:57 AMB (Rec: 09/12/17 11:59 AMB [email or web address]) OP-PT Subjective Patient Comments Patient Comments Pt has been having increased pain on Wednesdays due to going down to [place] and kayaking, driving is painful. PT-OP-E Functional Tests Start: 07/12/17 06:42 Freq: Status: Active Protocol: Document 09/19/17 10:30 AMB (Rec: 09/19/17 11:22 AMB [id number]) Functional Tests Timed Up and Go (TUG) Score 26 seconds Comments with 1 SPC, 24 with forearm crutches PT-OP-G Mobility & Gait Start: 07/12/17 06:42 Freq: Status: Active Protocol: Document 07/11/17 10:30 AMB (Rec: 07/12/17 07:13 AMB [email or web address]) OP Mobility Evaluation Wheelchair Management Assessment Details Pt did not bring it in but it sounds like a rigid ultra light. He does get right shoulder pain both anteriorly and in the scapula with propulsion, especially with end range shoulder extension. OP Gait Assessment Gait Gait Assistance Required: Standby Assistance Distance (Feet) (feet) 40 Assistive Devices Assistive Device Straight Cane Factors Limiting Gait Function Factors Limiting Gait Function Abnormal Tonal Influences Decreased Sensation Decreased Strength Pain Poor Balance Comments Gait Comments Pt with very stiff gait, reduced trunk rotation, placing his feet takes concentration. Pt has 2 near falls during PT. States that he leg just give out. PT-OP-H Neuro Start: 07/12/17 06:42 Freq: Status: Active Protocol: Document 07/11/17 10:30 AMB (Rec: 07/12/17 07:02 AMB [email or web address]) Sensation Evaluation Location Details Lower Extremity Light Touch Impaired Proprioception (Position) Impaired Comments Summary Comments Pt reports recent sensation testing at [place]: had difficult with sharp vs dull due to increased pain in bilateral legs, worst at anterior knees. Pt hyper sensitive to light touch to the point he tries not to wear long pants (but he can wear socks and shoes). Muscle Tone Tone Assessment Lower Extremity Muscle Tone Comments Non- diminishing clonus bilaterally PT-OP-J Posture/Palpation/Skin Start: 07/12/17 06:42 Freq: Status: Active Protocol: Document 07/11/17 10:30 AMB (Rec: 07/12/17 07:06 AMB [email or web address]) Palpation Assessment Location Two Palpation Location R shoulder Palpation Findings Soft Tissue Tightness Tenderness Palpation Details Tenderness with palpation at biceps tendon on the right, not on the left. One Palpation Location Scar at thoracic and lumbar spine Palpation Findings Muscle Guarding Palpation Details Patient is concerned about a knot at his proximal scar on the right. It is quite firm and increases his pain with palpation. PT-OP-M Strength Start: 07/12/17 06:42 Freq: Status: Active Protocol: Document 07/11/17 10:30 AMB (Rec: 07/12/17 06:56 AMB [email or web address]) Trunk Strength Trunk Manual Muscle Testing Testing Position Supine Core Stabilization Can control double leg lowering without back arching until 30 degrees from neutral. Hip Strength Hip Manual Muscle Testing Right Flexion (L2) 4 Good Extension (S1) 4 Good Abduction 4- Good- Left Flexion (L2) 4+ Good+ Extension (S1) 4+ Good+ Abduction 4 Good Knee Strength Knee Manual Muscle Testing Left Flexion (S2) 4+ Good+ Extension (L3) 5 Normal Right Flexion (S2) 4+ Good+ Extension (L3) 5 Normal Ankle/Foot Strength Ankle and Foot Manual Muscle Testing Left Dorsiflexion (L4) 4 Good Plantarflexion (S1) 4- Good- Inversion 4 Good Eversion (S1) 3 Fair Right Dorsiflexion (L4) 4 Good Plantarflexion (S1) 4- Good- Inversion 4 Good Eversion (S1) 3 Fair Toe Strength Toe Manual Muscle Testing Right Great Toe Extension 4+ Good+ Left Great Toe Extension 4+ Good+ PT-OP-Q Treatments Start: 07/12/17 06:42 Freq: Status: Active Protocol: Document 09/19/17 10:30 AMB (Rec: 09/19/17 11:27 AMB [id number]) Therapeutic Exercises Standing Exercises 2 Standing Exercise Name squats Comments wall squat, then partial squat with light UE support 1 Standing Exercise Name heel raise Equipment Used on stair Reps/Minutes x 10 ea Comments single and double Manual Therapy Treatment Soft Tissue Mobilization 1 Comments Instruction in self pressure point with ball and sock around farm truck driver's seat Neuro Re-Education Treatment Balance Activities 2 Details dynamic balance Comments [email or web address] 1 Details single leg stance Comments 5-8 seconds, takes concentration PT-OP-T Assessment and Plan Start: 07/12/17 06:42 Freq: Status: Active Protocol: Document 09/19/17 10:30 AMB (Rec: 09/19/17 11:07 AMB [id number]) Physical Therapy Assessment Goals 3 Impairment Balance Short Term Goal (STG) The patient will stand without UE support without LOB for 1 minute. MET STG Duration 4 weeks Option Trader Goal (LTG) The patient will reduce his falls from approximately 1x/ day to 1x/week. PROGRESS- 3-4 falls/week LTG Duration 8 weeks 2 Impairment Pain Short Term Goal (STG) The patient will roll over in bed without pain. NOT MET STG Duration 4 weeks Intermediate Goal (LTG) The patient will tolerate wearing long pants with 5/10 pain or less. NOT MET LTG Duration 8 weeks 1 Impairment Gait Short Term Goal (STG) The patient will improve his TUG score to 12 seconds with 1 SPC. NOT MET STG Duration 4 weeks Intermediate Goal (LTG) The patient will ambulate in the community over uneven surfaces for 20 minutes without LOB or an increase in pain. NOT MET LTG Duration 8 weeks Assessment Summary Assessment The patient's timed up and go was actually worse today than at initial evaluation. This is likely due to patient's fatigue from his trip to [place] yesterday. His pain continues to limit his function- very stiff with his gait today. Pt will benefit from continued PT to progress his gait/ LE/ core stability, to reduce his risk of falls. Pt continues to fall multiple times per week, although he states the frequency is decreasing. Physical Therapy Plan Frequency and Duration Frequency of Treatment 1x/Week Duration of Treatment 8 weeks Plan of Care Start Date 09/19/17 Plan of Care End Date 11/14/17 Therapeutic Interventions Therapeutic Interventions Aquatic Therapy Gait Training Home Exercise Program Manual Therapy Neuromuscular Re-education Self-Care/Home Management Therapeutic Activities Therapeutic Exercises Next Visit Focus/Plan Next Note Type Treatment Note Next Visit Plan Progress dynamic balance, gait
--- NOTE | 2017-09-19 11:55 | PT.OPPOC ---
Current Diagnoses Pain in leg, unspecified (09/19/17) Provider Visit Care Team Role Provider Type Arthur Bowens MD Attending Provider Physician Family Provider Primary Care Provider Specialty: Family Practice Address: [address] [place] [address], [id number] Email: [email or web address] Plan Of Care PT-OP-T Assessment and Plan Start: 07/12/17 06:42 Freq: Status: Active Protocol: Document 09/19/17 10:30 AMB (Rec: 09/19/17 11:07 AMB [id number]) Physical Therapy Assessment Goals 3 Impairment Balance Short Term Goal (STG) The patient will stand without UE support without LOB for 1 minute. MET STG Duration 4 weeks Universal Grinder Tool Goal (LTG) The patient will reduce his falls from approximately 1x/ day to 1x/week. PROGRESS- 3-4 falls/week LTG Duration 8 weeks 2 Impairment Pain Short Term Goal (STG) The patient will roll over in bed without pain. NOT MET STG Duration 4 weeks Snf Goal (LTG) The patient will tolerate wearing long pants with 5/10 pain or less. NOT MET LTG Duration 8 weeks 1 Impairment Gait Short Term Goal (STG) The patient will improve his TUG score to 12 seconds with 1 SPC. NOT MET STG Duration 4 weeks Universal Grinder Tool Goal (LTG) The patient will ambulate in the community over uneven surfaces for 20 minutes without LOB or an increase in pain. NOT MET LTG Duration 8 weeks Assessment Summary Assessment The patient's timed up and go was actually worse today than at initial evaluation. This is likely due to patient's fatigue from his trip to [place] yesterday. His pain continues to limit his function- very stiff with his gait today. Pt will benefit from continued PT to progress his gait/ LE/ core stability, to reduce his risk of falls. Pt continues to fall multiple times per week, although he states the frequency is decreasing. Physical Therapy Plan Frequency and Duration Frequency of Treatment 1x/Week Duration of Treatment 8 weeks Plan of Care Start Date 09/19/17 Plan of Care End Date 11/14/17 Therapeutic Interventions Therapeutic Interventions Aquatic Therapy Gait Training Home Exercise Program Manual Therapy Neuromuscular Re-education Self-Care/Home Management Therapeutic Activities Therapeutic Exercises Next Visit Focus/Plan Next Note Type Treatment Note Next Visit Plan Progress dynamic balance, gait Plan of Care Dates Plan of Care Start Date 09/19/17 Plan of Care End Date 11/14/17 Please Sign and Return: I have reviewed this Plan of Care and certify that the skilled therapy services above are required to meet the patient?s needs. Physician Signature Date Printed Name and Credentials Clinical Instructor Signature Printed Name and Credentials
--- NOTE | 2017-10-24 13:28 | PT.OTN ---
Current Diagnoses Pain in leg, unspecified (10/24/17) Physical Therapy Treatment Note PT-OP-A Visit Information Start: 07/12/17 06:42 Freq: Status: Active Protocol: Document 10/24/17 10:30 AMB (Rec: 10/24/17 10:34 AMB [id number]) Out-Patient Physical Therapy Visit Information Visit Information Visit Type Treatment Note Visit Start Time 10:30 Visit Stop Time 11:15 Total Visit Minutes 45 Visit Number 7 Evaluation Information Evaluation Date 07/11/17 PT-OP-B Current Condition Start: 07/12/17 06:42 Freq: Status: Active Protocol: Document 07/11/17 10:30 AMB (Rec: 07/13/17 07:05 AMB [id number]) Current Condition History of Current Condition Onset Date 03/23/2014 Current Complaints Difficulty walking, pain in bilateral legs s/p incomplete paraplegia History of Current Condition Pt was in a snowboarding accident in 2014. He fractured T12 and had 2 surgeries: T1-L2 PSIF and T11 -L1 anterior fusion. Prior Treatments and Tests He had physical therapy in 2014 which focused on land and aquatic based exercise. He has followed up by exercising in the pool and the gym 3x/ week. He also goes to a chiropractor and massage therapist which helps with the leg and back pain. Treatment Goals Patient/Caregiver Goals Figure out what he can do to improve his function Prior Functional Status Baseline Function- ADL's Modified Independent Baseline Function- Mobility Modified Independent Baseline Function- Gait Before his SCI the patient was an independent community ambulator Baseline Function- Work/School Patient is retired Current Functional Impairments (Reported) Functional Limitations- Mobility/Gait Pt ambulates with 1-2 SPCs for short distances, uses a manual w/c for longer distances. PT-OP-C Subjective Start: 07/12/17 06:42 Freq: Status: Active Protocol: Document 10/24/17 10:30 AMB (Rec: 10/24/17 11:15 AMB [id number]) OP-PT Subjective Patient Comments Patient Comments The patient reports he had surgery two weeks ago. Still recovering from hemerroidectomy. Has been taking it easy. Pain all over body has been increasing. PT-OP-E Functional Tests Start: 07/12/17 06:42 Freq: Status: Active Protocol: Document 09/19/17 10:30 AMB (Rec: 09/19/17 11:22 AMB [id number]) Functional Tests Timed Up and Go (TUG) Score 26 seconds Comments with 1 SPC, 24 with forearm crutches PT-OP-G Mobility & Gait Start: 07/12/17 06:42 Freq: Status: Active Protocol: Document 07/11/17 10:30 AMB (Rec: 07/12/17 07:13 AMB [email or web address]) OP Mobility Evaluation Wheelchair Management Assessment Details Pt did not bring it in but it sounds like a rigid ultra light. He does get right shoulder pain both anteriorly and in the scapula with propulsion, especially with end range shoulder extension. OP Gait Assessment Gait Gait Assistance Required: Standby Assistance Distance (Feet) (feet) 40 Assistive Devices Assistive Device Straight Cane Factors Limiting Gait Function Factors Limiting Gait Function Abnormal Tonal Influences Decreased Sensation Decreased Strength Pain Poor Balance Comments Gait Comments Pt with very stiff gait, reduced trunk rotation, placing his feet takes concentration. Pt has 2 near falls during PT. States that he leg just give out. PT-OP-H Neuro Start: 07/12/17 06:42 Freq: Status: Active Protocol: Document 07/11/17 10:30 AMB (Rec: 07/12/17 07:02 AMB [email or web address]) Sensation Evaluation Location Details Lower Extremity Light Touch Impaired Proprioception (Position) Impaired Comments Summary Comments Pt reports recent sensation testing at [facility]: had difficult with sharp vs dull due to increased pain in bilateral legs, worst at anterior knees. Pt hyper sensitive to light touch to the point he tries not to wear long pants (but he can wear socks and shoes). Muscle Tone Tone Assessment Lower Extremity Muscle Tone Comments Non- diminishing clonus bilaterally PT-OP-J Posture/Palpation/Skin Start: 07/12/17 06:42 Freq: Status: Active Protocol: Document 07/11/17 10:30 AMB (Rec: 07/12/17 07:06 AMB [email or web address]) Palpation Assessment Location Two Palpation Location R shoulder Palpation Findings Soft Tissue Tightness Tenderness Palpation Details Tenderness with palpation at biceps tendon on the right, not on the left. One Palpation Location Scar at thoracic and lumbar spine Palpation Findings Muscle Guarding Palpation Details Patient is concerned about a knot at his proximal scar on the right. It is quite firm and increases his pain with palpation. PT-OP-M Strength Start: 07/12/17 06:42 Freq: Status: Active Protocol: Document 07/11/17 10:30 AMB (Rec: 07/12/17 06:56 AMB [email or web address]) Trunk Strength Trunk Manual Muscle Testing Testing Position Supine Core Stabilization Can control double leg lowering without back arching until 30 degrees from neutral. Hip Strength Hip Manual Muscle Testing Right Flexion (L2) 4 Good Extension (S1) 4 Good Abduction 4- Good- Left Flexion (L2) 4+ Good+ Extension (S1) 4+ Good+ Abduction 4 Good Knee Strength Knee Manual Muscle Testing Left Flexion (S2) 4+ Good+ Extension (L3) 5 Normal Right Flexion (S2) 4+ Good+ Extension (L3) 5 Normal Ankle/Foot Strength Ankle and Foot Manual Muscle Testing Left Dorsiflexion (L4) 4 Good Plantarflexion (S1) 4- Good- Inversion 4 Good Eversion (S1) 3 Fair Right Dorsiflexion (L4) 4 Good Plantarflexion (S1) 4- Good- Inversion 4 Good Eversion (S1) 3 Fair Toe Strength Toe Manual Muscle Testing Right Great Toe Extension 4+ Good+ Left Great Toe Extension 4+ Good+ PT-OP-Q Treatments Start: 07/12/17 06:42 Freq: Status: Active Protocol: Document 10/24/17 10:30 AMB (Rec: 10/24/17 13:25 AMB [id number]) Therapeutic Exercises Supine Exercises 5 Supine Exercise Name SLR Reps/Minutes 10 4 Supine Exercise Name bridges Resistance 10 2 Supine Exercise Name 90-90 knee extension Resistance AROM Reps/Minutes 2 x 5 1 Supine Exercise Name heel slides Reps/Minutes 10 Standing Exercises 2 Standing Exercise Name squats Comments wall squat, then partial squat with light UE support Neuro Re-Education Treatment Balance Activities 3 Details modified tandem Comments eyes closed immediately causes LOB PT-OP-T Assessment and Plan Start: 07/12/17 06:42 Freq: Status: Active Protocol: Document 10/24/17 10:30 AMB (Rec: 10/24/17 13:25 AMB [id number]) Physical Therapy Assessment Assessment Summary Assessment Pt showed decreased balance and tolerance to exercise today, since has not been seen in over a month and had hemeroidectomy. Likely will have one more visit before [facility]. Physical Therapy Plan Next Visit Focus/Plan Next Note Type Treatment Note Next Visit Plan Progress dynamic balance, gait
--- NOTE | 2017-10-31 16:25 | PT.OTN ---
Current Diagnoses Pain in leg, unspecified (10/31/17) Physical Therapy Treatment Note PT-OP-A Visit Information Start: 07/12/17 06:42 Freq: Status: Active Protocol: Document 10/31/17 09:45 AMB (Rec: 10/31/17 10:17 AMB [id number]) Out-Patient Physical Therapy Visit Information Visit Information Visit Type Discharge Summary Visit Start Time 09:45 Visit Stop Time 10:30 Total Visit Minutes 45 Visit Number 8 Evaluation Information Evaluation Date 07/11/17 PT-OP-B Current Condition Start: 07/12/17 06:42 Freq: Status: Active Protocol: Document 07/11/17 10:30 AMB (Rec: 07/13/17 07:05 AMB [email or web address]) Current Condition History of Current Condition Onset Date 03/23/2014 Current Complaints Difficulty walking, pain in bilateral legs s/p incomplete paraplegia History of Current Condition Pt was in a snowboarding accident in 2014. He fractured T12 and had 2 surgeries: T1-L2 PSIF and T11 -L1 anterior fusion. Prior Treatments and Tests He had physical therapy in 2014 which focused on land and aquatic based exercise. He has followed up by exercising in the pool and the gym 3x/ week. He also goes to a chiropractor and massage therapist which helps with the leg and back pain. Treatment Goals Patient/Caregiver Goals Figure out what he can do to improve his function Prior Functional Status Baseline Function- ADL's Modified Independent Baseline Function- Mobility Modified Independent Baseline Function- Gait Before his SCI the patient was an independent community ambulator Baseline Function- Work/School Patient is retired Current Functional Impairments (Reported) Functional Limitations- Mobility/Gait Pt ambulates with 1-2 SPCs for short distances, uses a manual w/c for longer distances. PT-OP-C Subjective Start: 07/12/17 06:42 Freq: Status: Active Protocol: Document 10/31/17 09:45 AMB (Rec: 10/31/17 10:17 AMB [id number]) OP-PT Subjective Patient Comments Patient Comments The patient wants to review HEP. PT-OP-E Functional Tests Start: 07/12/17 06:42 Freq: Status: Active Protocol: Document 09/19/17 10:30 AMB (Rec: 09/19/17 11:22 AMB [id number]) Functional Tests Timed Up and Go (TUG) Score 26 seconds Comments with 1 SPC, 24 with forearm crutches PT-OP-G Mobility & Gait Start: 07/12/17 06:42 Freq: Status: Active Protocol: Document 07/11/17 10:30 AMB (Rec: 07/12/17 07:13 AMB [email or web address]) OP Mobility Evaluation Wheelchair Management Assessment Details Pt did not bring it in but it sounds like a rigid ultra light. He does get right shoulder pain both anteriorly and in the scapula with propulsion, especially with end range shoulder extension. OP Gait Assessment Gait Gait Assistance Required: Standby Assistance Distance (Feet) (feet) 40 Assistive Devices Assistive Device Straight Cane Factors Limiting Gait Function Factors Limiting Gait Function Abnormal Tonal Influences Decreased Sensation Decreased Strength Pain Poor Balance Comments Gait Comments Pt with very stiff gait, reduced trunk rotation, placing his feet takes concentration. Pt has 2 near falls during PT. States that he leg just give out. PT-OP-H Neuro Start: 07/12/17 06:42 Freq: Status: Active Protocol: Document 07/11/17 10:30 AMB (Rec: 07/12/17 07:02 AMB [email or web address]) Sensation Evaluation Location Details Lower Extremity Light Touch Impaired Proprioception (Position) Impaired Comments Summary Comments Pt reports recent sensation testing at [facility]: had difficult with sharp vs dull due to increased pain in bilateral legs, worst at anterior knees. Pt hyper sensitive to light touch to the point he tries not to wear long pants (but he can wear socks and shoes). Muscle Tone Tone Assessment Lower Extremity Muscle Tone Comments Non- diminishing clonus bilaterally PT-OP-J Posture/Palpation/Skin Start: 07/12/17 06:42 Freq: Status: Active Protocol: Document 07/11/17 10:30 AMB (Rec: 07/12/17 07:06 AMB [email or web address]) Palpation Assessment Location Two Palpation Location R shoulder Palpation Findings Soft Tissue Tightness Tenderness Palpation Details Tenderness with palpation at biceps tendon on the right, not on the left. One Palpation Location Scar at thoracic and lumbar spine Palpation Findings Muscle Guarding Palpation Details Patient is concerned about a knot at his proximal scar on the right. It is quite firm and increases his pain with palpation. PT-OP-M Strength Start: 07/12/17 06:42 Freq: Status: Active Protocol: Document 07/11/17 10:30 AMB (Rec: 07/12/17 06:56 AMB [email or web address]) Trunk Strength Trunk Manual Muscle Testing Testing Position Supine Core Stabilization Can control double leg lowering without back arching until 30 degrees from neutral. Hip Strength Hip Manual Muscle Testing Right Flexion (L2) 4 Good Extension (S1) 4 Good Abduction 4- Good- Left Flexion (L2) 4+ Good+ Extension (S1) 4+ Good+ Abduction 4 Good Knee Strength Knee Manual Muscle Testing Left Flexion (S2) 4+ Good+ Extension (L3) 5 Normal Right Flexion (S2) 4+ Good+ Extension (L3) 5 Normal Ankle/Foot Strength Ankle and Foot Manual Muscle Testing Left Dorsiflexion (L4) 4 Good Plantarflexion (S1) 4- Good- Inversion 4 Good Eversion (S1) 3 Fair Right Dorsiflexion (L4) 4 Good Plantarflexion (S1) 4- Good- Inversion 4 Good Eversion (S1) 3 Fair Toe Strength Toe Manual Muscle Testing Right Great Toe Extension 4+ Good+ Left Great Toe Extension 4+ Good+ PT-OP-Q Treatments Start: 07/12/17 06:42 Freq: Status: Active Protocol: Document 10/31/17 09:45 AMB (Rec: 10/31/17 16:23 AMB [email or web address]) Gym Equipment Therapeutic Ball 1 Exercise Details LAQ, march, pelvic tilt Ball Size/Color 65cm Body Position Sitting Comments Difficult to maintain posture, TrA engaged Therapeutic Exercises Supine Exercises 4 Supine Exercise Name bridges Resistance 10 Comments on ball Prone Exercises 3 Prone Exercise Name quadruped LE/ UE ext Reps/Minutes 5 2 Prone Exercise Name cat cow Reps/Minutes 10 1 Prone Exercise Name higinio pose Comments with SB PT-OP-T Assessment and Plan Start: 07/12/17 06:42 Freq: Status: Active Protocol: Document 10/31/17 09:45 AMB (Rec: 10/31/17 16:23 AMB [email or web address]) Physical Therapy Assessment Goals 3 Impairment Balance Short Term Goal (STG) The patient will stand without UE support without LOB for 1 minute. MET STG Duration 4 weeks Processor Inspector Goal (LTG) The patient will reduce his falls from approximately 1x/ day to 1x/week. MET LTG Duration 8 weeks 2 Impairment Pain Short Term Goal (STG) The patient will roll over in bed without pain. NOT MET STG Duration 4 weeks Retirement Goal (LTG) The patient will tolerate wearing long pants with 5/10 pain or less. NOT MET LTG Duration 8 weeks 1 Impairment Gait Short Term Goal (STG) The patient will improve his TUG score to 12 seconds with 1 SPC. NOT MET STG Duration 4 weeks Retirement Goal (LTG) The patient will ambulate in the community over uneven surfaces for 20 minutes without LOB or an increase in pain. NOT MET LTG Duration 8 weeks Assessment Summary Assessment Pt continues to have nerve pain in his legs that makes it difficult to walk. His back has lately been aggravated by kayaking classes.He is very motivated to improve, but his pain continues to limit him. Physical Therapy Plan Discharge Physical Therapy Discharge Reasons Plateau in Progress Discharge Comments Insurance authorization ends soon. Pt has met 2/6 goals.
== END 2018-01-29 11:04 ==
LOC: PHYS 09:45
PROVIDERS: Family Provider Family Medicine; PCP Family Medicine; Visit Provider Family Medicine
DX: M79.606 Pain in leg, unspecified (principal)
CPT/HCPCS: 97110; 97112; 97140; 97162; 97530

== ENCOUNTER → 2019-03-12 13:33 | Outpatient (CLI) | payer OTHER, SELFPAY ==
--- NOTE | 2019-03-12 | DI.MRI.S_ITS ---
PROCEDURE: MR THORACIC SPINE WO CON INDICATIONS: SPINAL CORD INJURY TECHNIQUE: Noncontrast sagittal T1 spine echo and T2 fast spin echo, sagittal STIR, axial T1 and T2 fast spin echo through the thoracic spine. COMPARISON: [facility], CR, L-SPINE 2-3 VIEWS, 03/02/2009, 10:04. [facility], , MR LUMBAR SPINE WO CON, 03/12/2019, 14:22. [facility], CR, CHEST 2 VIEW, 12/04/2015, 12:08. FINDINGS: Image quality: There is susceptibility artifact associated with the metallic hardware. Alignment and Curvature: Mild dextroconvex scoliotic curvature is seen. Accentuated thoracic kyphosis is seen. Bone Marrow: Marrow is of normal overall signal. Scattered foci are seen, which are hyperintense on T1-weighted and T2-weighted imaging, which are most consistent with benign vertebral body hemangiomas. No acute vertebral body compression fractures. Spinal Cord: Visualized spinal cord is normal in size and signal. Paraspinous Soft Tissues: Within the subcutaneous fat centered on the right at the T9 level, there is an ovoid lesion seen that measures up to 3 cm craniocaudally. This demonstrates increased STIR signal and decreased signal on T1-weighted imaging and T2-weighted imaging. Miscellaneous: Extensive lumbar spine fixation hardware is seen extending from T10-L2. There is a strut graft seen through the T12 level. At T6-T7, there is a focal mild right foraminal disc protrusion seen. There is associated moderate right-sided neural foraminal narrowing. At T7-T8, there is a mild disc protrusion seen. No significant neural foraminal narrowing can be seen. Moderate neural foraminal narrowing is seen at this level. At T8-T9, there is a mild central disc protrusion seen, as on series 8 image 11. Mild central canal narrowing is seen, with associated mild mass effect upon the ventral spinal cord. No significant neural foraminal narrowing is seen. IMPRESSION: No significant spinal cord abnormality can be seen. Unremarkable T10-L2 fixation hardware, with associated susceptibility artifact. Mid thoracic spine degenerative changes are seen. Apparent 3 cm right posterior sebaceous cyst. Dictated by: Thom Kelly M.D. on 03/12/2019 at 14:32 Approved by: Thom Kelly M.D. on 03/12/2019 at 14:39
--- NOTE | 2019-03-12 14:06 | DI.MRI.S_ITS ---
PROCEDURE: MR LUMBAR SPINE WO CON INDICATIONS: SPINAL CORD INJURY TECHNIQUE: Noncontrast sagittal T1 spin echo and T2 fast echo, sagittal STIR, axial T1 and T2 fast spin echo through the lumbar spine. In cases with scoliosis, additional coronal T2 fast spin echo may be performed. COMPARISON: [facility], CR, L-SPINE 2-3 VIEWS, 03/02/2009, 10:04. [facility], MR, MR THORACIC SPINE WO CON, 03/12/2019, 14:22. [facility], CT, ABDOMEN/PELVIS WITH CONTRAST, 05/16/2017, 11:54. FINDINGS: Image quality: There is susceptibility artifact associated with metallic hardware. Alignment and Curvature: Mild dextroconvex scoliotic curvature is seen. Bone Marrow: Marrow is of normal overall signal. No acute vertebral body compression fractures. Spinal Cord: Conus medullaris terminates at the L1 level. Visualized cord demonstrates normal size. There is a tiny cystic focus seen within the T12 level the cord, as on series 11 image 10 measuring 4 mm. Paraspinous Soft Tissues: No paravertebral masses. Thoracolumbar fixation hardware is seen through L2. There is a strut graft at the T12 level. There is associated susceptibility artifact. T12-L1: No significant abnormality is seen. L1-L2: Mild to moderate loss of disc height and disc signal are seen. Mild generalized disc bulge is seen. L2-L3: Mild to moderate loss of disc height and disc signal are seen. Moderate generalized disc bulge is seen. There is moderate left-sided and mild to moderate right-sided neural foraminal narrowing seen. [id number] central canal narrowing is seen. There is a focal annular fissure seen posteriorly. L3-L4: The disc height is well-preserved. Loss of disc signal is seen at this level. Mild to moderate disc bulge is seen. Iodw-le-ohtdkxxm bilateral neural foraminal narrowing can be seen. Moderate central canal narrowing is seen. L4-L5: The disc height is well-preserved. Loss of disc signal is seen at this level. Moderate generalized disc bulge is seen. Mild facet joint hypertrophy is seen. There is at least moderate bilateral neural foraminal narrowing seen, left worse than right. Mild central canal narrowing is seen. L5-S1: The disc height is well-preserved. Loss of disc signal is seen at this level. Mild generalized disc bulge is seen. There is at least moderate bilateral neural foraminal narrowing seen, right worse than left. No significant central canal narrowing is seen. IMPRESSION: Thoracolumbar postoperative hardware is seen. At the T12 level, there is a focal cystic lesion seen in the spinal cord. Please correlate with known patient history and prior imaging. Multiple levels of lumbar spine degenerative change are seen, which are overall most prominent at the L2-L3 level and At L2-L3, there is a focal annular fissure seen posteriorly. Dictated by: Thom Kelly M.D. on 03/12/2019 at 16:19 Approved by: Thom Kelly M.D. on 03/12/2019 at 16:26
== END ==
PROVIDERS: Family Provider Family Medicine; Visit Provider Physical Medicine & Rehabilitation
DX: T14.8XXA Other injury of unspecified body region, initial encounter (principal); G95.9 Disease of spinal cord, unspecified; M47.814 Spondylosis without myelopathy or radiculopathy, thoracic region; M47.816 Spondylosis without myelopathy or radiculopathy, lumbar region; M41.9 Scoliosis, unspecified; X58.XXXA Exposure to other specified factors, initial encounter
CPT/HCPCS: 72146; 72148

== ENCOUNTER → 2023-06-17 07:21 | Outpatient (CLI) | payer MEDICARE, OTHER, SELFPAY ==
--- NOTE | 2023-06-17 | DI.MRI.S_ITS ---
PROCEDURE: MR LUMBAR SPINE WO CON INDICATIONS: Spinal stenosis, lumbar region TECHNIQUE: Noncontrast sagittal T1 spin echo and T2 fast echo, sagittal STIR, and T2 fast spin echo through the lumbar spine. In cases with scoliosis, additional coronal T2 fast spin echo may be performed. COMPARISON: [facility], MR, MR LUMBAR SPINE WO CON, 03/12/2019, 14:22. FINDINGS: Image quality: Excellent. Partially lumbarized S1 with rudimentary disc at S1-2. Prior surgery: Corpectomy with T12 with interbody cage. Posterior fusion instrumentation extending from the thoracic spine to L2, with the superior aspect excluded from field of view. Alignment and Curvature: Mild levoscoliosis of the lumbar spine, centered at L2-3. Bone Marrow: Fibrovascular end plate change at L2-3. Spinal Cord: Conus medullaris terminates at the L1-2 level. Visualized cord demonstrates normal signal and size. Paraspinous Soft Tissues: No paravertebral masses. T12-L1: Normal appearance. L1-L2: Normal appearance. L2-L3: Mild disc bulge superimposed left foraminal disc protrusion. Mild bilateral facet arthropathy. Mild central canal stenosis. Mild left neural foraminal stenosis. No right neural foraminal stenosis. L3-L4: Disc bulge. Mild bilateral facet arthropathy. No central canal stenosis. No right neural from stenosis. No left neural foraminal stenosis. L4-L5: Disc bulge. Mild bilateral facet arthropathy. No central canal or neural foraminal stenosis. L5-S1: Disc bulge. Mild bilateral facet arthropathy. No central canal stenosis. No neural foraminal stenosis. Small T2 hyperintense lesion in the left posterior iliac wing, nonspecific. No abdominal aortic aneurysm. Visualized sacrum is intact. IMPRESSION: 1. Postprocedural changes at the thoracolumbar junction as described above. 2. Fibrovascular end plate change at L2-3, new from prior exam. 3. Multilevel degenerative disc disease of the lumbar spine, most pronounced at L2-3, where there is mild central canal stenosis and mild left neural from stenosis, grossly unchanged from prior exam. Dictated by: Emily Brunner M.D. on 06/18/2023 at 10:07 Approved by: Emily Brunner M.D. on 06/18/2023 at 10:17
== END ==
PROVIDERS: Family Provider Family Medicine; PCP Nurse Practitioner Family; Referring Provider Physical Medicine & Rehabilitation; Visit Provider Physical Medicine & Rehabilitation
DX: M48.062 Spinal stenosis, lumbar region with neurogenic claudication (principal); M51.36 Other intervertebral disc degeneration, lumbar region; M51.37 Other intervertebral disc degeneration, lumbosacral region; Z98.1 Arthrodesis status
CPT/HCPCS: 72148

== ENCOUNTER → 2024-08-04 09:27 | Outpatient (CLI) | payer MEDICARE, OTHER, SELFPAY ==
--- NOTE | 2024-08-04 09:33 | DI.RAD.S_ITS ---
PROCEDURE: XR LUMBAR SPINE MIN 4V INDICATIONS: BACK PAIN TECHNIQUE: 5 views of the lumbar spine were acquired, including bilateral oblique views. COMPARISON: None. FINDINGS: Postoperative changes with pedicle screws and posterior fixation rods spanning from T10-L2. T12 corpectomy with interbody strut. Moderate degenerative changes of the lumbar spine with disc space narrowing, osteophytes, facet osseous hypertrophic changes most notably at L3-4, L4-5 and L5-S1 with [id number]-[id number] bilateral neural foraminal narrowing at these levels. No radiographic evidence of acute fracture or subluxation. Moderate to severe degenerative changes bilateral hips with joint space narrowing, osteophytes, sclerotic changes right greater than left, Kellgren Ricky grade 3-4. IMPRESSION: Postoperative and degenerative changes as discussed above. If symptoms persist or worsen, or there is high clinical suspicion of thoracic or lumbar abnormality, MRI could be performed. Dictated by: Chau Wilson M.D. on 08/04/2024 at 10:36 Approved by: Chau Wilson M.D. on 08/04/2024 at 10:39
--- NOTE | 2024-08-04 09:33 | DI.RAD.S_ITS ---
PROCEDURE: XR THORACIC SPINE 3V INDICATIONS: RIB INJURY TECHNIQUE: 3 views of the thoracic spine were acquired. COMPARISON: None. FINDINGS: C7-T1 and T1-T2 are not well evaluated due to overlap from the shoulders. Multilevel degenerative changes are noted with disc space narrowing, osteophytes, costovertebral and facet hypertrophic changes. Postoperative changes are noted with pedicle screws and posterior fixation rods T10-L2, off the inferior margin of the images. Indistinct margins of T12 vertebral body with possible prior corpectomy with strut placement. CT or MRI would be more useful for further evaluation. Ribs are not well evaluated on this exam. CT chest could be considered IMPRESSION: Postoperative changes and degenerative changes of the thoracic and upper lumbar spine as discussed above. Dictated by: Chau Wilson M.D. on 08/04/2024 at 10:04 Approved by: Chau Wilson M.D. on 08/04/2024 at 10:25
== END ==
PROVIDERS: Family Provider Family Medicine; PCP Nurse Practitioner Family; Referring Provider Physical Medicine & Rehabilitation; Visit Provider Physical Medicine & Rehabilitation
DX: G82.20 Paraplegia, unspecified (principal); M54.9 Dorsalgia, unspecified; S29.9XXA Unspecified injury of thorax, initial encounter; M89.8X8 Other specified disorders of bone, other site; M48.04 Spinal stenosis, thoracic region; M25.78 Osteophyte, vertebrae; Z98.890 Other specified postprocedural states; M48.061 Spinal stenosis, lumbar region without neurogenic claudication
CPT/HCPCS: 72072; 72110

== ENCOUNTER 2024-12-09 08:04 | Outpatient (CLI) | payer MEDICARE, OTHER, SELFPAY ==
[2024-12-09] VITALS (8 sets, daily range): BP systolic 103–119; BP diastolic 57–78; PULSE 54–88; RESP 11–19; TEMP 36.1; O2SAT 95–99
[2024-12-09] MEDS: MIDAZOLAM 2 MG/2 ML VIAL IV (09:57)
[2024-12-09] MEDS: LIDOCAINE 1% (PF) 5 ML INJ (10:03)
--- NOTE | 2024-12-09 10:17 | PM.PROC.IR.1 ---
Date/Time/Diagnoses Date of procedure: 12/09/24 Time of procedure: 10:18 Pre-procedure diagnosis: 1. FACET ARTHROPATHY Post-procedure diagnosis: same Procedure Notes Procedure: 1. BILATERAL- L4, L5 and S1 DIAGNOSTIC MB BLOCKS with LA Anesthetic Indications: Shayne is referred by PERRY Estrada for treatment of Bilateral Axial LBP. Physician: Shun Meyers Total Fluoroscopy time (seconds): 11 Total sedation minutes: 15 Complications: none Procedure in detail & Post-procedure care: DESCRIPTION OF PROCEDURE Fluoroscopically guided, contrast-controlled bilateral L4, L5 and S1 medial branch blocks with 0.5cc of 0.5% Marcaine. Following review of allergy and review of potential side effects and complications, including, but not necessarily limited to, infection, allergic reaction, local tissue breakdown, nerve injury, paralysis, stroke and possible , the patient indicated that the patient understood and agreed to proceed. An informed consent document was signed by the patient, witnessed by a nurse, and placed in the patient's chart. After review of previous anaesthesic history and IV conscious sedation the patient was deemed safe to proceed with today's procedure with IV conscious sedation as ASA class II designation. Safety time-out was performed to confirm patient ID, procedure to be performed and site of procedure. IV sedation was accomplished with a combination of 2mg of Versed was administered by the RN after DO order, titrated to patient comfort during the course of the procedure while the patient remained responsive to all verbal commands In the prone position, following sterile prep and drape of the lumbar region, the right L4, L5 and S1 anatomical location of the medial branch of the dorsal ramus was identified fluoroscopically. Subsequently an anesthetic skin wheal using 1% lidocaine solution was initiated at each of the anatomical spots. Subsequently then a 22-gauge 3.5-inch spinal needle was atraumatically introduced and advanced under fluoroscopic guidance at each of the corresponding sites at the right L4, L5 and S1 MB. After negative aspiration, 0.2cc of Isovue 200 was injected, confirming placement without vascular or intrathecal uptake. Subsequently then 0.5cc of 0.5% Marcaine solution was injected at each of the corresponding sites at the right L4, L5 and S1 medial branch locations. The identical procedure was replicated on the left. The patient tolerated the procedure well without signs or symptoms of complications prior to transfer to the recovery area continued monitoring without incident. Post-procedure, the patient was monitored initiating provocative activities to measure the amount of relief from block of the facetogenic pain. The patient reported a VAS of 7 prior to the procedure and a post-procedure VAS of 1. It has been a pleasure to assist in the diagnostic and therapeutic care of your patient. POST OP INSTRUCTIONS The patient was provided with a Pain Log to complete over the next several hours and subsequent days prior to the patient's follow up with the ordering physician. 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 The patient is aware, was provided, once again, with a Pain Log and will follow up with the referring physician for review and clinical correlation
== END 2024-12-09 10:30 | disposition home or self-care (01) ==
LOC: RAD 08:06
PROVIDERS: PCP Nurse Practitioner Family; Referring Provider Nurse Practitioner Family; Visit Provider Physical Medicine & Rehabilitation
DX: M47.816 Spondylosis without myelopathy or radiculopathy, lumbar region (principal); M47.817 Spondylosis without myelopathy or radiculopathy, lumbosacral region
CPT/HCPCS: 64493; 64494; 99152; J2250